=== PATIENT | female | born 1975 | race Two or more races ===

== ENCOUNTER 2018-05-23 23:18 | Emergency (ER) | payer MEDICAID ==
[~2018-05-23] VITALS: Ht 167.6 cm; Wt 136.1 kg
[2018-05-23 23:38] VITALS: BP 155/81
[2018-05-24] MEDS: IBUPROFEN 800 MG TAB PO ONE (01:42)
== END 2018-05-24 01:35 | disposition home or self-care (01) ==
LOC: ER 23:20
DX: M62.830 Muscle spasm of back (principal); M62.838 Other muscle spasm; J06.9 Acute upper respiratory infection, unspecified; W01.0XXA Fall on same level from slipping, tripping and stumbling without subsequent striking against object, initial encounter; Y93.89 Activity, other specified; Y99.8 Other external cause status; Y92.512 Supermarket, store or market as the place of occurrence of the external cause
CPT/HCPCS: 70450; 72125; 72131; 73560

== ENCOUNTER 2019-03-21 19:35 | Emergency (ER) | payer MEDICAID ==
[~2019-03-21] VITALS: Ht 167.6 cm; Wt 139.7 kg
[2019-03-21 20:49] LABS: Basophils # (auto) 0 uL; Eosinophils # (auto) 0.1 uL; Hemoglobin 11.8 g/dL (12.2-16.2)
[2019-03-21 20:51] LABS: Basophils % (auto) 0.4 % (0.0-2.0); Eosinophils % (auto) 1.4 % (0.0-7.0); Lymphocytes # (auto) 1.8 uL; Lymphocytes % (auto) 25.4 % (10.0-50.0); Mean Corpuscular Hemoglobin 26.2 pg (28.0-32.0); Mean Corpuscular Hgb Conc. 32.7 g/dL (32.0-36.0); Mean Corpuscular Volume 80.1 fL (80.0-100.0); Monocytes # (auto) 0.3 uL; Monocytes % (auto) 4.6 % (0.0-12.0); Neutrophils % (auto) 68.2 % (37.0-80.0); Platelet Count (auto) 315 10^3/uL (140-450); Red Cell Distribution Width 13.9 % (11.8-14.3); White Blood Cell 7.3 10^3/uL (4.4-10.8)
[2019-03-21 20:57] LABS: Urine WBC None Seen /hpf (0 - 5)
[2019-03-21 21:06] LABS: Albumin 3.4 g/dL (3.4-5.0); BUN/Creatinine Ratio 21.3; Calcium 8.3 mg/dL (8.5-10.1); Potassium 3.8 mmol/L (3.5-5.1)
[2019-03-21 21:09] LABS: Bilirubin, Total 0.2 mg/dL (0.2-1.0); Total Protein 7.9 g/dL (6.4-8.2)
[2019-03-21 21:26] LABS: Urine Specific Gravity 1.028 (1.001-1.035)
[2019-03-21 21:27] LABS: Urine Bacteria NONE SEEN /hpf (None Seen); Urine Blood 3+ /uL (Negative)
[2019-03-22 06:43] VITALS: BP 109/60
== END 2019-03-22 07:20 | disposition home or self-care (01) ==
LOC: ER 19:44
DX: N93.8 Other specified abnormal uterine and vaginal bleeding (principal); Z88.8 Allergy status to other drugs, medicaments and biological substances
CPT/HCPCS: 36415; 80053; 81001; 84702; 85025